=== PATIENT | male | born 1990 | race Caucasian/White ===

== ENCOUNTER 2020-08-09 10:11 | Emergency (ER) | payer OTHER ==
[~2020-08-09] VITALS: Ht 175.3 cm; Wt 74.8 kg
[2020-08-09] MEDS ORDERED: SPIRONOLACTONE25 MG (10:22)
[2020-08-09] MEDS ORDERED: ESTRADIOL (10:23)
[2020-08-09] MEDS ORDERED: PROPECIA1 MG PO (10:23)
[2020-08-09] MEDS ORDERED: PROGESTERONE100 MG (10:24)
[2020-08-09 10:43] LABS: URINE BILIRUBIN NEGATIVE (Negative); URINE BLOOD 3+ (Negative); URINE CLARITY CLEAR; URINE COLOR YELLOW; URINE GLUCOSE-RANDOM NEGATIVE (Negative); URINE KETONES 2+ (Negative); URINE LEUKOCYTES-REFLEX NEGATIVE (Negative); URINE NITRITE-REFLEX NEGATIVE (Negative); URINE PROTEIN 2+ (Negative); URINE SPECIFIC GRAVITY 1.025 (1.005-1.030); URINE UROBILINOGEN 0.2 E.U./dl (0.2-1.0)
[2020-08-09 10:45] LABS: ABSOLUTE BASOPHILS 0.1 thou/uL (0.0-0.2); ABSOLUTE EOSINOPHILS 0.4 thou/uL (0.0-0.7); ABSOLUTE LYMPHOCYTES 1.3 thou/uL (0.8-5.3); ABSOLUTE MONOCYTES 0.6 thou/uL (0.0-1.2); ABSOLUTE NEUTROPHILS 5.3 thou/uL (1.6-8.1); HEMATOCRIT 40.9 % (42.0-52.0); HEMOGLOBIN 14.2 gm/dL (14.0-18.0); LYMPHOCYTES 16.8 %; MCH 30.9 pg (26.0-34.0); MCHC 34.8 g/dL (28.0-37.0); MCV 88.8 fL (80.0-100.0); MONOCYTES 7.6 %; MPV 8.1 fl. (7.2-11.1); NUCLEATED RBCS 0 /100WBC; PLATELET COUNT* 293 thou/uL (150-400); POLYS 69.6 %; RDW-CV 11.7 % (10.5-14.5); WBC 7.7 thou/uL (4.0-11.0)
[2020-08-09 10:48] LABS: SQUAMOUS 4-10 Moderate /LPF (0-3)
[2020-08-09 10:49] LABS: BACTERIA-REFLEX 1-9 Few /HPF (None Seen); CASTS None Seen /LPF (None Seen); CRYSTALS None Seen /LPF (None Seen); MUCUS None Seen strn/LPF (None Seen); URINE RBC >20 Many /HPF (0-2); URINE WBC-REFLEX 0-5 Rare /HPF (0-5)
[2020-08-09 10:58] LABS: CALCIUM 8.4 mg/dL (8.5-10.1); CREATININE 1.3 mg/dL (0.6-1.3); POTASSIUM 3.9 mmol/L (3.5-5.1)
[2020-08-09 11:02] LABS: ALBUMIN 3.9 g/dL (3.4-5.0); TOTAL BILIRUBIN 0.4 mg/dL (<0.1-1.0); TOTAL PROTEIN 7.6 g/dL (6.4-8.2)
[2020-08-09] MEDS ORDERED: BENTYL 20 MG TA20 M1 PO (12:26)
[2020-08-09] MEDS ORDERED: CIPRO500 MG PO (12:26)
[2020-08-09] MEDS ORDERED: ZOFRAN ODT4 MG PO (12:26)
[2020-08-09] MEDS ORDERED: FLAGYL500 M1 PO (12:26)
[2020-08-09 12:37] VITALS: BP 104/60
== END 2020-08-09 12:38 | disposition home or self-care (01) ==
LOC: M.ERS 10:11
PROVIDERS: Nurse Practitioner Family
DX: K52.9 Noninfective gastroenteritis and colitis, unspecified (principal); Z88.0 Allergy status to penicillin

== ENCOUNTER 2020-08-17 08:08 | Emergency (ER) | payer OTHER ==
[~2020-08-17] VITALS: Ht 182.9 cm; Wt 65.8 kg
[~2020-08-17 08:08] MED LIST: BENTYL 20 MG TA20 M1 PO; CIPRO500 MG PO; ESTRADIOL; FLAGYL500 M1 PO; PROGESTERONE100 MG; PROPECIA1 MG PO; SPIRONOLACTONE25 MG; ZOFRAN ODT4 MG PO
[2020-08-17 08:45] LABS: URINE BILIRUBIN 1+ (Negative); URINE BLOOD 3+ (Negative); URINE CLARITY CLEAR; URINE COLOR YELLOW; URINE GLUCOSE-RANDOM NEGATIVE (Negative); URINE KETONES 3+ (Negative); URINE LEUKOCYTES-REFLEX NEGATIVE (Negative); URINE NITRITE-REFLEX NEGATIVE (Negative); URINE PROTEIN TRACE (Negative); URINE SPECIFIC GRAVITY >= 1.030 (1.005-1.030); URINE UROBILINOGEN 0.2 E.U./dl (0.2-1.0)
[2020-08-17 08:47] LABS: ICTOTEST (BILI CONFIRMATORY) Negative (Negative)
[2020-08-17 08:48] LABS: BACTERIA-REFLEX 1-9 Few /HPF (None Seen); CASTS None Seen /LPF (None Seen); CRYSTALS None Seen /LPF (None Seen); MUCUS 4-6 Moderate strn/LPF (None Seen); SQUAMOUS 4-10 Moderate /LPF (0-3); URINE RBC 3-10 Few /HPF (0-2); URINE WBC-REFLEX 0-5 Rare /HPF (0-5)
[2020-08-17 08:50] LABS: ABSOLUTE BASOPHILS 0.1 thou/uL (0.0-0.2); ABSOLUTE EOSINOPHILS 0.3 thou/uL (0.0-0.7); ABSOLUTE LYMPHOCYTES 1.7 thou/uL (0.8-5.3); ABSOLUTE MONOCYTES 0.8 thou/uL (0.0-1.2); ABSOLUTE NEUTROPHILS 7.8 thou/uL (1.6-8.1); BASOPHILS 0.8 %; EOSINOPHILS 2.9 %; HEMATOCRIT 39.1 % (42.0-52.0); HEMOGLOBIN 13.4 gm/dL (14.0-18.0); LYMPHOCYTES 16.1 %; MCHC 34.1 g/dL (28.0-37.0); MCV 87.8 fL (80.0-100.0); MONOCYTES 7.3 %; MPV 8.6 fl. (7.2-11.1); NUCLEATED RBCS 0 /100WBC; PLATELET COUNT* 288 thou/uL (150-400); POLYS 72.9 %; RBC 4.45 mil/uL (4.50-6.00); RDW-CV 11.9 % (10.5-14.5); WBC 10.8 thou/uL (4.0-11.0)
[2020-08-17 08:54] LABS: CALCIUM 8.4 mg/dL (8.5-10.1); CREATININE 0.9 mg/dL (0.6-1.3); POTASSIUM 3.1 mmol/L (3.5-5.1)
[2020-08-17 09:04] LABS: ALBUMIN 3.7 g/dL (3.4-5.0); TOTAL BILIRUBIN 0.4 mg/dL (<0.1-1.0)
[2020-08-17] MEDS ORDERED: ZOFRAN ODT4 MG SUBLING (10:23)
[2020-08-17] MEDS ORDERED: NORCO 5-325 TA1 EAC2 PO (10:23)
[2020-08-17 10:44] VITALS: BP 110/61
== END 2020-08-17 10:45 | disposition home or self-care (01) ==
LOC: M.ERS 08:08
PROVIDERS: Family Medicine
DX: R10.31 Right lower quadrant pain (principal); Z88.0 Allergy status to penicillin; Z79.899 Other long term (current) drug therapy